=== PATIENT | female | born 1975 | race Caucasian/White ===

== ENCOUNTER 2016-12-01 03:48 | Inpatient (IN) ==
[2016-12-01 04:30] LABS: BE -2.2 mmoll (-3.0-3.0); BLOOD TYPE ARTERIAL; DRAW SITE R BRACHIAL; O2(CT) 11.9 mL/dL (15.0-23.0); PCO2(98.6) 50 mmHg (35-45); SAMPLE BLOOD; SAO2 77.1 % (95.0-100.0); THB 11.5 g/dL (11.5-17.4)
--- NOTE | 2016-12-01 04:39 | EKG Report ---
Test Performed on : 12/01/2016 03:58:16 AM Test Reason : DYSPNEA Blood Pressure : / mmHG Vent. Rate : 102 BPM Atrial Rate : 102 BPM P-R Int : 172 ms QRS Dur : 084 ms QT Int : 360 ms P-R-T Axes : 052 010 081 degrees QTc Int : 469 ms Sinus tachycardia. Low voltage QRS Septal infarct , age undetermined Abnormal ECG When compared with ECG of 11-NOV-2015 18:40, Septal infarct is now present Unconfirmed Result
[2016-12-01 04:45] LABS: BASO% 0.3 % (0.0-0.8); EOS# 0.17 X1000 (0.0-0.7); HEMOGLOBIN 11.7 g/dL (12.0-16.0); IMM GRAN# 0.13 X1000 (0.0-0.04); IMM GRAN% 0.8 % (0.0-0.5); LYMPH# 1.42 X1000 (1.2-3.4); LYMPH% 8.6 % (20.5-51.1); MANUAL DIFF NEEDED? NO; MCH 26.6 PG (27-31); MCHC 31.6 g/dL (33-37); MCV 84.1 FL (81-99); MONO# 0.76 X1000 (0.11-0.59); MONO% 4.6 % (1.7-9.3); NEUT% 84.7 % (42.2-75.2); PLT 401 X1000 (130-400)
--- NOTE | 2016-12-01 04:50 | PROVIDER DOCUMENTATION ---
HPI-Respiratory General - General Chief Complaint: Shortness of Breath Stated Complaint: SHORTNESS OF BREATH Time Seen by Provider: 12/01/16 04:04 Source: patient (Patient is a 41 year old morbidly obese white female, S/P laparscopic removal of right ovarian cyst by Dr. Bedoya at [facility] 4 days ago,H/O diabetes, who developed sudden onset of shortness of breath and substernal chest discomfort at 11pm tonight. Upon presentation, pulse ox revealed oxygen sat of 58%. Denies fever, productive cough.) Allergies/Adverse Reactions: Patient Allergies Allergy/AdvReac Type Severity Reaction Status Date / Time No Known Allergies Allergy Verified 11/11/15 18:18 Home Medications: Home Medication List Medication Instructions Recorded Confirmed Last Taken Type Amlodipine Besylate 5 mg PO HS 02/11/16 02/11/16 02/09/16 History Furosemide 40 mg PO PRN PRN 02/11/16 02/11/16 Unknown History Insulin Degludec [Tresiba 120 unit SQ DAILY 02/11/16 02/11/16 02/09/16 History Flextouch U-200] Insulin Lispro [Humalog Kwikpen 45 unit SQ TID AC 02/11/16 02/11/16 02/09/16 History U-100] Metoprolol Succinate 100 mg PO DAILY 02/11/16 02/11/16 02/09/16 History Pravastatin Sodium 80 mg PO HS 02/11/16 02/11/16 02/09/16 History Promethazine HCl 25 mg PO Q6H PRN PRN 02/11/16 02/11/16 02/09/16 History Albuterol 2.5MG/Ipratrop 0.5MG 3 ml INH RTQ4H #0 neb 02/12/16 Unknown Rx [Duoneb (A & A)] Levofloxacin [Levaquin] 750 mg PO QAM #7 tablet 02/12/16 Unknown Rx Azithromycin [Zithromax Z-Isauro] 250 mg PO DIRECTED #1 pkg 08/04/16 Unknown Rx Phenylephrine HCl/Cod/Prometh 2 tsp PO Q6H PRN PRN #120 syrup 08/04/16 Unknown Rx [Phenergan Vc-Codeine Syrup] - History of Present Illness-Resp Quality of Pain: reports: aching Review of Systems - Adult - REVIEW OF SYSTEMS - ADULT Constitutional: denies: chills, fever Eyes: denies: blurred vision Ears, Nose, Mouth & Throat: denies: throat pain Cardiovascular: reports: see HPI, chest pain Respiratory: reports: see HPI, dyspnea on exertion, shortness of breath Gastrointestinal: denies: abdominal pain, constipation, nausea, vomiting Genitourinary: denies: dysuria Musculoskeletal: reports: no symptoms reported Integumentary: denies: rash Neurological: denies: headache/migraines Psychiatric: reports: see HPI, anxiety Endocrine: reports: no symptoms reported Hematologic/Lymphatic: reports: see HPI. denies: blood clots, easy bruising, prolonged bleeding Allergic/Immunologic: reports: no symptoms reported All Other Systems: Reviewed and Negative Past History - Adult - PAST MEDICAL HISTORY-ADULT Review of Records: reports: Old Records Reviewed, Nursing Assessment Review, Medications Reviewed, Social history reviewed & non-contributory. Major Childhood Illnesses: reports: denies history Cardiovascular: reports: HTN, hyperlipidemia Gastrointestinal: reports: IBS, other (gastroparesis) Neurological: reports: other (neuropathy) Endocrine/Immune: reports: Diabetes Additional History: fibromyalgia/bilateral detached retina/legally blind - PRIOR SURGERIES/PROCEDURES Surgical/Procedure History: reports: cholecystectomy, hysterectomy, , other (bilateral eyes/left foot 2 toes amputated/gastric stimulator) - IMMUNIZATION STATUS Childhood Immunizations: See Nurse Assessment Flu Vaccine: See Nurse Assessment - FAMILY HISTORY Family History: reviewed, not pertinent Physical Exam-General - CONSTITUTIONAL General Appearance: alert, moderate distress, obese - EYES Eyes: other (clear) - HEAD, EARS, NOSE, MOUTH & THROAT HENMT: normocephalic/atraumatic, moist mucous membranes - NECK Neck: non-tender, full range of motion, supple - RESPIRATORY Respiratory: lungs clear, no respiratory distress, no accessory muscle use, decreased breath sounds - CARDIOVASCULAR Cardiovascular: tachycardia - GASTROINTESTINAL (ABDOMEN) Abdominal Exam: soft, no organomegaly, no pulsatile mass, tenderness (mild tenderness). negative: guarding, rebound - LYMPHATIC Lymphatic: no adenopathy - MUSCULOSKELETAL Back Exam: normal inspection, no CVA tenderness Extremity: non-tender. negative: deformity Peripheral Pulses: radial (R): 2+, radial (L): 2+, dorsalis-pedis (R): 2+, dorsalis-pedis (L): 2+ - SKIN Integumentary: normal color, normal turgor, warm/dry - NEUROLOGIC Neurologic: grossly normal - PSYCHIATRIC Psych/Mental Status: anxious Progress - PLAN OF CARE/RESULTS Progress/Plan/Lab Results: Vital Signs - 8 hr 12/01/16 03:53 12/01/16 05:11 Temperature 98.6 F Pulse Rate 104 H 106 H Respiratory Rate 14 21 Blood Pressure 131/112 137/97 O2 Sat by Pulse Oximetry 48 L 95 Laboratory Results - last 24 hr 12/01/16 12/01/16 12/01/16 03:50 04:11 04:11 WBC RBC Hgb Hct MCV MCH MCHC RDW Std Deviation Plt Count MPV Immature Gran % (Auto) Neut % (Auto) Lymph % (Auto) Jones % (Auto) Eos % (Auto) Baso % (Auto) Immature Gran # (Auto) Neut # (Auto) Lymph # (Auto) Jones # (Auto) Eos # (Auto) Baso # (Auto) PT INR APTT (Factor Assay) D-Dimer Specimen Type ARTERIAL Sample Site R BRACHIAL pH 7.30 L pCO2 50 H pO2 38 L* HCO3 22.7 Base Excess -2.2 Oxyhemoglobin 73.9 L* ABG O2 Sat (Calculated) 11.9 L ABG O2 Saturation 77.1 L ABG Carboxyhemoglobin 3.20 H ABG Methemoglobin 1.0 Jeffrey Test NO A-a O2 Difference 256.0 Total Hemoglobin 11.5 Lactate 1.40 Blood Gas Modality VENTIMASK FiO2 % 50.0 Inspiratory BiPAP Expiratory BiPAP Sodium 136 Potassium 5.0 Chloride 99 Carbon Dioxide 23 L Anion Gap 15 BUN 38 H Creatinine 1.5 H Estimated GFR/1.73 m2 39 BUN/Creatinine Ratio 25 Glucose 292 H Calculated Osmolality 292 Calcium 8.3 L Magnesium 2.4 Total Bilirubin 0.40 AST 158 H ALT 224 H Alkaline Phosphatase 265 H Creatine Kinase 449 H Creatine Kinase Index 0.9 CK-MB (CK-2) 4.05 Troponin T 0.017 Lxg-Q-Vbbqjpoajkh Pept Total Protein 6.9 Albumin 3.5 Globulin 3.0 Albumin/Globulin Ratio 1.0 12/01/16 12/01/16 12/01/16 04:11 04:11 04:11 WBC 16.44 H RBC 4.40 Hgb 11.7 L Hct 37.0 MCV 84.1 MCH 26.6 L MCHC 31.6 L RDW Std Deviation 14.9 H Plt Count 401 H MPV 10.0 Immature Gran % (Auto) 0.8 H Neut % (Auto) 84.7 H Lymph % (Auto) 8.6 L Jones % (Auto) 4.6 Eos % (Auto) 1.0 Baso % (Auto) 0.3 Immature Gran # (Auto) 0.13 H Neut # (Auto) 13.91 H Lymph # (Auto) 1.42 Jones # (Auto) 0.76 H Eos # (Auto) 0.17 Baso # (Auto) 0.05 PT 13.1 INR 0.96 APTT (Factor Assay) 27.1 D-Dimer 1.56 H Specimen Type Sample Site pH pCO2 pO2 HCO3 Base Excess Oxyhemoglobin ABG O2 Sat (Calculated) ABG O2 Saturation ABG Carboxyhemoglobin ABG Methemoglobin Jeffrey Test A-a O2 Difference Total Hemoglobin Lactate Blood Gas Modality FiO2 % Inspiratory BiPAP Expiratory BiPAP Sodium Potassium Chloride Carbon Dioxide Anion Gap BUN Creatinine Estimated GFR/1.73 m2 BUN/Creatinine Ratio Glucose Calculated Osmolality Calcium Magnesium Total Bilirubin AST ALT Alkaline Phosphatase Creatine Kinase Creatine Kinase Index CK-MB (CK-2) Troponin T Rch-D-Ltekknqmjhs Pept 4651 H Total Protein Albumin Globulin Albumin/Globulin Ratio 12/01/16 04:45 WBC RBC Hgb Hct MCV MCH MCHC RDW Std Deviation Plt Count MPV Immature Gran % (Auto) Neut % (Auto) Lymph % (Auto) Jones % (Auto) Eos % (Auto) Baso % (Auto) Immature Gran # (Auto) Neut # (Auto) Lymph # (Auto) Jones # (Auto) Eos # (Auto) Baso # (Auto) PT INR APTT (Factor Assay) D-Dimer Specimen Type ARTERIAL Sample Site R BRACHIAL pH 7.34 L pCO2 47 H pO2 109 H HCO3 24.4 Base Excess -0.7 Oxyhemoglobin 95.9 ABG O2 Sat (Calculated) 15.7 ABG O2 Saturation 99.6 ABG Carboxyhemoglobin 2.50 ABG Methemoglobin 1.2 Jeffrey Test NO A-a O2 Difference 545.0 Total Hemoglobin 11.5 Lactate 0.90 Blood Gas Modality BI PAP FiO2 % 100.0 Inspiratory BiPAP 16.0 Expiratory BiPAP 6.0 Sodium Potassium Chloride Carbon Dioxide Anion Gap BUN Creatinine Estimated GFR/1.73 m2 BUN/Creatinine Ratio Glucose Calculated Osmolality Calcium Magnesium Total Bilirubin AST ALT Alkaline Phosphatase Creatine Kinase Creatine Kinase Index CK-MB (CK-2) Troponin T Mir-T-Uimgpopldvt Pept Total Protein Albumin Globulin Albumin/Globulin Ratio Orders Category Date Time Status Cardiac Monitoring DIRECTED Care 12/01/16 04:05 Active Fingerstick Blood Sugar [FSBS/Accucheck Result] NOW Care 12/01/16 04:04 Active Oxygen Therapy- ED Nursing DIRECTED Care 12/01/16 04:05 Active Saline Loc NOW Care 12/01/16 04:05 Active CHEST-1 VIEW [RAD] Stat Exams 12/01/16 04:24 Taken CTA [ANGIOGRAM/PULMONARY ARTERIES] [CT] Stat Exams 12/01/16 05:32 Ordered ABG [RESP] Routine Lab 12/01/16 03:50 Completed ABG [RESP] Routine Lab 12/01/16 04:45 Completed CBC WITH ELECTRONIC DIFF [HEME] Stat Lab 12/01/16 04:11 Completed CK PROFILE [SP CHEM] Stat Lab 12/01/16 04:11 Completed COMPREHENSIVE METABOLIC PANEL [CHEM] Stat Lab 12/01/16 04:11 Com[address] D-DIMER PL [COAG] Stat Lab 12/01/16 04:11 Completed MAGNESIUM [CHEM] Stat Lab 12/01/16 04:11 Completed PRO B-NATRIURETIC PEPTIDE Stat Lab 12/01/16 04:11 Com[address]IME WITH INR PL [COAG] Stat Lab 12/01/16 04:[address] [COAG] Stat Lab 12/01/16 04:11 Completed TROPONIN T Stat Lab 12/01/16 04:[address] W/POSS RFLX CULT [URINALYSIS] Stat Lab 12/01/16 05:40 Uncollected Enoxaparin [Lovenox] Med 12/01/16 05:16 Discontinued 100 mg .ROUTE .STK-MED ONE Enoxaparin [Lovenox] Med 12/01/16 05:10 Discontinued 120 mg SUBQ NOW ONE Enoxaparin [Lovenox] Med 12/01/16 05:16 Discontinued 30 mg .ROUTE .STK-MED ONE Enoxaparin [Lovenox] Med 12/01/16 05:18 Discontinued 60 mg .ROUTE .STK-MED ONE Lorazepam [Ativan] Med 12/01/16 05:32 Discontinued 1 mg IV NOW ONE Lorazepam [Ativan] Med 12/01/16 05:33 Discontinued 2 mg .ROUTE .STK-MED ONE BIPAP Stat Oth 12/01/16 04:14 Active EKG [EKG] Stat Ther 12/01/16 03:55 Draft Result Diagrams: 12/01/16 04:11 12/01/16 04:11 - XRAY 1 XRAY Study: Chest Impression: Need Further Study (appears clear, decreased excursion) - CHANGE OF SHIFT REPORT (ED Provider) Report Given and Care Transferred to:: Dr. Wilson Items Pending: CT/MRI Results Departure - Departure Date of Disposition Decision: 12/01/16 Time of Disposition Decision: 06:00 DIAGNOSIS: Hypoxemia, Elevated d-dimer Disposition: STILL A PATIENT 30 Certified Medical Emergency: Emergent Condition: Stable Referrals and Follow-Ups: None,PCP [Primary Care Provider] - - Critical Care Note This patient required my direct & personal management of CC.: Yes
[2016-12-01 04:51] LABS: ALBUMIN 3.5 g/dL (3.5-5.0); CALCIUM 8.3 mg/dL (8.8-10.2); INR 0.96 (0.86-1.15); MAGNESIUM 2.4 mg/dL (1.5-2.7); PROTIME 13.1 Seconds (12.1-15.5); TOTAL BILIRUBIN 0.4 mg/dL (0.20-1.00); TOTAL PROTEIN 6.9 g/dL (6.3-8.3)
[2016-12-01 04:52] LABS: PTT PL 27.1 Seconds (22.6-43.9)
[2016-12-01] MEDS ORDERED: LOVENOX SUBQ ONE (05:10)
[2016-12-01 05:12] LABS: PO2(98.6) 38 mmHg (60-100)
[2016-12-01 05:13] LABS: ALLEN TEST NO; MODALITY VENTIMASK
[2016-12-01 05:15] LABS: CK INDEX 0.9 (0.0-2.5); CK-MB 4.05 ng/mL (0.0-5.0)
[2016-12-01] MEDS ORDERED: LOVENOX ONE ×3 (05:16→05:18)
[2016-12-01 05:17] LABS: BE -0.7 mmoll (-3.0-3.0); BLOOD TYPE ARTERIAL; DRAW SITE R BRACHIAL; METHB 1.2 % (0.0-1.5); O2(CT) 15.7 mL/dL (15.0-23.0); PCO2(98.6) 47 mmHg (35-45); PO2(98.6) 109 mmHg (60-100); SAMPLE BLOOD; SAO2 99.6 % (95.0-100.0); THB 11.5 g/dL (11.5-17.4); pH(98.6) 7.34 (7.35-7.45)
[2016-12-01 05:18] LABS: MODALITY BI PAP
[2016-12-01 05:19] LABS: ALLEN TEST NO
[2016-12-01] MEDS ORDERED: ATIVAN IV ONE (05:32)
[2016-12-01] MEDS ORDERED: ATIVAN ONE (05:33)
--- NOTE | 2016-12-01 06:11 | Diag Imaging Result Doc PS360 ---
EXAM: CHEST-1 VIEW HISTORY: sob TECHNIQUE: Portable semierect COMPARISON: 08/04/2016 FINDINGS: Poor inspiratory effort. Heart is not enlarged. No pleural effusions identified. No consolidation. Mild increased interstitial markings. IMPRESSION: Mild pulmonary edema. Follow-up PA and lateral recommended.. Electronically signed by Nicola Colbert 12/01/2016 6:08 AM
[2016-12-01 07:15] LABS: BILIRUBIN URINE NEGATIVE (NEGATIVE); BLOOD URINE NEGATIVE (NEGATIVE); CLARITY CLEAR (CLEAR); COLOR YELLOW; GLUCOSE URINE NEGATIVE (NEGATIVE); LEUKOCYTES URINE TRACE (NEGATIVE); NITRITE URINE NEGATIVE (NEGATIVE); PROTEIN URINE 1+(30 mg/dL) mg/dL (NEGATIVE); SP GRAVITY URINE 1.015; UROBILINOGEN URINE NORMAL
[2016-12-01 07:30] LABS: URINE CULTURE PL NEEDED? YES; URINE EPITHELIAL CELLS <10 /HPF (<10); URINE RBC <10 /HPF (<10); URINE SOURCE CATH; URINE WBC <10 /HPF (<10)
--- NOTE | 2016-12-01 08:19 | Diag Imaging Result Doc PS360 ---
EXAM: ANGIOGRAM/PULMONARY ARTERIES HISTORY: postop hypoxemia,elevated d-dimer TECHNIQUE: CT angiogram of the pulmonary arteries with IV contrast and 3-D reconstructions as per standard protocol. COMPARISON: None. FINDINGS: Preliminary interpretation was given by the on-call radiologist. Images are limited by large body habitus. There is adequate visualization of the proximal pulmonary arterial branches. No intraluminal filling defects are appreciated suggest acute pulmonary embolism. There is no evidence for aortic aneurysm or dissection. No pericardial effusion is identified. There is a 17 x 12 mm prevascular lymph node. There are fairly extensive bilateral groundglass infiltrates and denser bibasilar consolidation. No pleural effusions. No pneumothorax. The bony structures are intact. Images of the upper abdomen reveal a metallic device right anterior abdominal wall. There are cholecystectomy clips. There is subcutaneous gas and edema left anterolateral abdomen likely related to prior surgery. Correlate clinically. IMPRESSION: 1.Fairly extensive pulmonary edema of uncertain etiology. 2.No evidence for acute pulmonary embolism. 3.Subcutaneous gas left anterolateral abdominal wall. Suspect postsurgical change. Correlate clinically. Electronically signed by Clary Hdz 12/01/2016 8:17 AM
[2016-12-01] MEDS ORDERED: NS 1,000 ML IV ONE (09:29)
[2016-12-01] MEDS ORDERED: LASIX IV ONE (10:21)
[2016-12-01] MEDS ORDERED: ZOFRAN IV PRN (10:32)
[2016-12-01] MEDS ORDERED: DUONEB (A & A) INH PRN (10:37)
[2016-12-01] MEDS: DUONEB (A & A) INH SCH ×4 (10:46→22:45)
[2016-12-01] MEDS: HUMALOG DOSE (PARKWAY) SUBQ SCH ×3 (11:25→20:55)
--- NOTE | 2016-12-01 12:32 | Extremity Venous Study ---
EXAM: Venous U/S Bilateral Legs HISTORY: elevated ddimer TECHNIQUE: Barnett scale, color Doppler, and duplex evaluation was performed. COMPARISON: None. FINDINGS: The deep veins of the bilateral lower extremities demonstrate appropriate compressibility and augmentation. No intraluminal thrombus is visualized. There is no evidence for DVT. The superficial veins appear patent. IMPRESSION: No evidence for deep venous thrombosis bilateral lower extremities. Electronically signed by Clary Hdz 12/01/2016 12:30 PM
[2016-12-01] MEDS ORDERED: VANCOMYCIN IV PER PHARMACY MISC SCH (14:00)
[2016-12-01] MEDS ORDERED: VANCOMYCIN 2,500 MG in NS 500 ML IV ONE (15:00)
[2016-12-01] MEDS: ZOSYN 3.375 GM/NS 3.375 GM/50 ML IVPB IV SCH ×2 (15:09→20:40)
--- NOTE | 2016-12-01 17:56 | HISTORY AND PHYSICAL ---
CHIEF COMPLAINT: Respiratory distress. HISTORY OF PRESENT ILLNESS: This is a 41-year-old obese female who presented to the emergency room via private car complaining of shortness of breath. On arrival, according to the ER record the patient had cyanotic finger nail beds and she was ashen. She had an oxygen saturation of 48% on room air with respirations at 12-14. At the time of my interview the patient is on BiPAP and unable to answer questions so history is taken from the chart and the . The states that the patient had surgery Sunday having a cyst removed from her ovary. It was done robotically. He states she went home that night. She 0was given looks like Percocet 7.5 mg. He said that she took 2 scheduled every 4-6 hours the 1st 24 hours and then 2 as needed. We are unsure of the amount that she took. He stated that she has had no complaints until today she told him that she was having shortness of breath and that she needed to come to the emergency room. The stated that he was going to go to [facility] were her physicians are but he felt she was too sick so he stopped at [facility]. As stated before on arrival she did have cyanotic nail beds. She was breathing 10-12 times a minute. She was found to have an elevated D-dimer with a CTA pulmonary negative for PE and bilateral lower extremity Doppler negative for DVT. Chest x-ray reveals mild pulmonary edema. She was noted to have lower extremity edema which the states is new since surgery. She was given 120 mg of Lovenox with Lasix IV and Ativan IV and admitted for further evaluation and treatment. 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 PAST SURGICAL HISTORY: Gastric pacemaker placement, cholecystectomy, , hysterectomy, amputation of 2 toes on the left foot. SOCIAL HISTORY: She denies alcohol, tobacco, or illicit drug use. She is . She lives with her and child. ALLERGIES: Tylenol which makes her heart race. HOME MEDICATIONS: A list will be obtained by the nursing staff. REVIEW OF SYSTEMS: Unable to obtain from the patient at present. PHYSICAL EXAMINATION: GENERAL: This is a morbidly obese 41-year-old female who is sitting in the bed in some distress with BiPAP in use. VITAL SIGNS: Blood pressure 161/98 with a heart rate of 102, respirations are 18, temperature is 98.7 degrees with oxygen saturations of 98-100 on BiPAP. NECK: Supple. Trachea midline. CARDIOVASCULAR: Regular rate and rhythm. S1 and S2 are appreciated. PULMONARY: Breath sounds are diminished throughout with some crackles noted bilateral. She does have some scattered wheezing. Chest rises and falls symmetrically with respiration. GASTROINTESTINAL: Abdomen is large, soft, nontender, nondistended with bowel sounds in all 4 quadrants. : Kramer is patent with perlita urine draining. EXTREMITIES: No clubbing or cyanosis. She does have lower extremity edema from just above the knees down, this is pitting. Pulses are palpable x4. SKIN: Warm and dry with no rashes or lesions noted. DIAGNOSTICS: WBC is 16.4 with a hemoglobin of 11.7, hematocrit 37 and platelets of 401,000. D- dimer is 1.56. Sodium is 136, potassium 5, BUN 38, creatinine 1.5 with glucose of ranging from the 180 to 290s. AST is 158, ALT 224, alkaline phosphatase 265 and CK 449, troponin is negative. Urinalysis essentially negative and Tylenol level is less than 1.2. Chest x-ray revealed mild pulmonary edema. Pulmonary arteriogram reveals no PE. Bilateral lower extremity Doppler no DVT. ASSESSMENT AND PLAN: 1. Acute hypoxic respiratory failure. Causes could be multifactorial. She did have recent surgery, we are unsure of how much fluid she received, the states that she has done very little since she came home from the hospital Sunday, infection could be another component as she does have a white count of 16. She did have recent surgery, although the chest x-ray is clear there is a chance there could be pneumonia, also overmedication could be a component as she was prescribed 15 mg of Percocet at a time per the 's statement with this being taken every 4-6 hours scheduled at 1st then p.r.n., once she was ventilated her PO2 did rise from 38-109 with saturations going from 48-95%. We will continue to follow, give supplemental oxygen, give BiPAP, will give no sedating medications. 2. Questionable sepsis. As stated above she has had recent surgery. Will obtain blood cultures. Urine culture is pending. She will be started on Zosyn and vancomycin dosed per pharmacy. 3. Pulmonary edema secondary to #1. Will continue with IV Lasix and diurese. 4. Chronic kidney disease. In looking back at her records it looks like since 2013 her creatinine has been 1-1.3. Will trend her labs. Renal dose any medications. 5. Diabetes mellitus. We will hold her home medications. She will be placed on pattern blood glucose with sliding scale insulin once she is eating then we can add her long-acting insulin. 6. Hypertension. We can identify her medications and continue when appropriate, while she is needing BiPAP continuously we going give hydralazine p.r.n. 7. Transaminitis. In review back her records she has been hospitalized with transaminitis in the past. It looks like she has had it over the last year and in February 2016 she was being monitored by her primary care physician on an outpatient basis. We will trend labs. 8. Gastroparesis with gastric pacemaker. We will assure the patient has no MRI. 9. Deep vein thrombosis prophylaxis. Will use Lovenox and GI prophylaxis Prilosec. Further treatments pending hospital course. Dictated by BRENDAN Beaver for Vince Oleary MD cc: BRENDAN Beaver MD
[2016-12-01] MEDS ORDERED: RELISTOR SUBQ ONE (18:59)
[2016-12-01] MEDS: APRESOLINE IV PRN (20:40)
[2016-12-01] MEDS: PRILOSEC PO SCH (20:40)
[2016-12-01] MEDS: LASIX IV SCH (20:41)
[2016-12-02] MEDS: ZOSYN 3.375 GM/NS 3.375 GM/50 ML IVPB IV SCH ×4 (02:14→20:34)
[2016-12-02] MEDS: APRESOLINE IV PRN ×2 (02:14→11:12)
[2016-12-02] MEDS: DUONEB (A & A) INH SCH ×6 (03:05→22:52)
[2016-12-02 06:03] LABS: HEMATOCRIT 34.8 % (37.0-47.0); HEMOGLOBIN 10.9 g/dL (12.0-16.0); MCH 26.6 PG (27-31); MCHC 31.3 g/dL (33-37); MCV 84.9 FL (81-99); RBC 4.1 XMIL (4.2-5.4)
[2016-12-02 06:34] LABS: ALBUMIN 2.9 g/dL (3.5-5.0); CALCIUM 8.4 mg/dL (8.8-10.2); MAGNESIUM 2.1 mg/dL (1.5-2.7); POTASSIUM 3.5 mmol/L (3.5-5.1); TOTAL BILIRUBIN 0.4 mg/dL (0.20-1.00); TOTAL PROTEIN 6.8 g/dL (6.3-8.3)
[2016-12-02] MEDS: HUMALOG DOSE (PARKWAY) SUBQ SCH ×4 (06:41→20:34)
[2016-12-02] MEDS: LASIX IV SCH ×2 (08:24→20:54)
[2016-12-02] MEDS: PRILOSEC PO SCH ×2 (08:24→20:34)
[2016-12-02] MEDS: LOVENOX SUBQ SCH (08:24)
[2016-12-02] MEDS ORDERED: LOVENOX SUBQ SCH (09:00)
[2016-12-02] MEDS ORDERED: PNEUMOVAX 23 IM ONE (10:30)
[2016-12-02] MEDS ORDERED: VANCOMYCIN 2,200 MG in NS 500 ML IV SCH (15:00)
--- NOTE | 2016-12-02 15:21 | PROGRESS NOTE ---
DATE: 12/02/2016 SUBJECTIVE: The patient states she feels much better today. She is on 2 L of nasal cannula. She is able to lie flat. She denies any shortness of breath, dyspnea, or cough. OBJECTIVE: Vital Signs: Blood pressure is 150/79 with a heart rate of 100, respirations are 22. Temperature is 97.2 degrees with O2 saturations of 96-99 on 4 L nasal cannula. Cardiovascular: Regular rate and rhythm. S1 and S2 appreciated. Pulmonary: She is diminished with equal expansion on inspiration. No increased work of breathing noted. Gastrointestinal: Abdomen is soft, nontender, nondistended with bowel sounds in all 4 quadrants. Extremities: No clubbing, cyanosis, or edema. Pulses are palpable x4. Calves are nontender. DIAGNOSTICS: WBC is 12.6 with a hemoglobin of 10.9, hematocrit 34.8, platelets of 364,000. Sodium is 144, potassium 3.5. BUN 29, creatinine 1.3 with a glucose of 111. Alkaline phosphatase is 53. ALT 126 and alkaline phosphatase 194. Urine culture revealed no growth. Blood cultures are pending. ASSESSMENT AND PLAN: 1. Acute hypoxic respiratory failure. This is resolved. 2. Questionable sepsis. We will continue with antibiotics. Urine culture is negative. Blood cultures are pending. 3. Pulmonary edema secondary to #1. The patient diuresed a total of 7800 mL, and she is -6,490 since admission. We will continue to monitor I and O. 4. Chronic kidney disease. Creatinine is 1.3. She is at her baseline. 5. Diabetes mellitus. Blood sugars are ranging in the 50-111 range. We will continue to hold her home medications, and she will just stay on pattern blood glucose with sliding scale. 6. Hypertension. We will continue with her current regimen. 7. Transaminitis. This is improving. 8. Gastroparesis with gastric pacemaker, aware. 9. Deep venous thrombosis prophylaxis. We will continue with Lovenox and gastrointestinal prophylaxis with Prilosec. Dictated by BRENDAN Beaver for Vince Oleary MD cc: BRENDAN Beaver MD
[2016-12-02] MEDS ORDERED: PERCOCET-5 PO PRN (15:55)
[2016-12-02] MEDS ORDERED: PHENERGAN PO PRN (15:55)
[2016-12-02] MEDS: TOPROL XL PO SCH (17:25)
[2016-12-02] MEDS: CYMBALTA PO SCH (17:26)
[2016-12-02] MEDS ORDERED: LASIX PO SCH (21:00)
[2016-12-02] MEDS ORDERED: NORVASC PO SCH (21:00)
[2016-12-03] MEDS: ZOSYN 3.375 GM/NS 3.375 GM/50 ML IVPB IV SCH ×2 (02:26→08:51)
[2016-12-03] MEDS: DUONEB (A & A) INH SCH ×3 (03:59→11:16)
[2016-12-03] MEDS: HUMALOG DOSE (PARKWAY) SUBQ SCH ×2 (06:41→12:19)
[2016-12-03 06:46] LABS: HEMATOCRIT 34.1 % (37.0-47.0); HEMOGLOBIN 10.6 g/dL (12.0-16.0); MCH 25.9 PG (27-31); MCHC 31.1 g/dL (33-37); MCV 83.4 FL (81-99); MPV 9.8 FL (7.4-10.4); RBC 4.09 XMIL (4.2-5.4)
[2016-12-03 07:20] LABS: ALBUMIN 2.9 g/dL (3.5-5.0); CALCIUM 8.1 mg/dL (8.8-10.2); POTASSIUM 3.5 mmol/L (3.5-5.1); TOTAL BILIRUBIN 0.4 mg/dL (0.20-1.00); TOTAL PROTEIN 6.6 g/dL (6.3-8.3)
[2016-12-03] MEDS: CYMBALTA PO SCH (10:11)
[2016-12-03] MEDS: TOPROL XL PO SCH (10:11)
[2016-12-03] MEDS: LASIX IV SCH (10:11)
[2016-12-03] MEDS: LOVENOX SUBQ SCH (10:11)
[2016-12-03] MEDS: PRILOSEC PO SCH (10:11)
[2016-12-03 11:57] VITALS: BP 140/85
--- NOTE | 2016-12-03 13:50 | ECHO REPORT ---
ORDER DATE: 12/01/2016 MEASUREMENTS: 1. Interventricular septum 1.0, left ventricular posterior wall 1.0, diastolic diameter 4.8, left atrium 3.8, aorta 2.8. 2. Aortic valve leaflets are trileaflet. Pulmonic valve was normal. Tricuspid valve was normal. Normal left ventricular cavity size. Estimated ejection fraction of 50-55%. Endocardium not well visualized in all views. Technically suboptimal study. Poor acoustic window. 3. Dopplers could not be obtained. Cannot comment on the regurgitation however there is no aortic stenosis. Mitral valve leaflets are normal. There is anterior echo-free space suggestive of pericardial fat pad. 4. There is no obvious intracardiac mass or thrombus seen. 5. There is mild mitral regurgitation. 6. There is no aortic stenosis or regurgitation. cc: MD Nathalie An CRNP
--- NOTE | 2016-12-03 18:26 | DISCHARGE SUMMARY ---
ADMISSION DATE: 12/01/2016 DISCHARGE DATE: 12/03/2016 DIAGNOSES: 1. Acute hypoxic respiratory failure, resolved. 2. Questionable sepsis. Blood cultures revealed no growth after 48 hours. Urine culture revealed no growth after 48 hours. 3. Pulmonary edema secondary to #1. The patient has diuresed 8 L since admission. This has resolved. 4. Chronic kidney disease. Creatinine is 1.3 at her baseline. 5. Diabetes mellitus. 6. Hypertension. 7. Transaminitis, resolved. 8. Gastroparesis with gastric pacemaker. Aware. DIAGNOSTICS: 1. 12/01/2016, chest x-ray revealed mild pulmonary edema. 2. 12/01/2016, pulmonary arteriogram revealed fairly extensive pulmonary edema. No evidence for acute pulmonary embolism. 3. Bilateral lower extremity Doppler revealed no evidence for DVT. HOSPITAL COURSE: Ms. Cisneros presented to the emergency room after having some shortness of breath. She was found to have O2 saturation of 48% with respirations 12-14. She was placed on BiPAP. Monitor in ICU. Thankfully, she did improve, has been transitioned down to nasal cannula. Now she has been on room air maintaining saturations of 96-98%. Thankfully, she is back to her normal. She has remained afebrile. We did trend blood sugars. They ranged from 106 to 250. She did have an episode of hypoglycemia at 51. She was covered with fingerstick blood sugars and pattern blood glucose. PHYSICAL EXAMINATION: Cardiovascular: Regular rate and rhythm. S1 and S2 appreciated. Pulmonary: Breath sounds are clear with no increased work of breathing noted. Gastrointestinal: Abdomen is large, soft, nondistended, nontender with bowel sounds in all 4 quadrants. Extremities: No clubbing, cyanosis, or edema. Neurologic: She is alert and oriented x3. Cranial nerves 2-12 grossly intact. DISCHARGE MEDICATIONS: 1. Metoprolol succinate 100 mg daily. 2. Duloxetine/hydrochloride 1 capsule daily. 3. Humalog insulin 50 units subcutaneous t.i.d. a.c. 4. Tarceva U200, 150 units daily. 5. Amlodipine 5 mg at bedtime. 6. Promethazine 25 mg q.6 hours p.r.n. 7. Furosemide 40 mg b.i.d. 8. Oxycodone 7.5/325 q.6 hours p.r.n. DISCHARGE VITAL SIGNS: Blood pressure is 140/80 with a heart rate of 100, respirations are 20, temperature is 97.7 degrees oral with room air saturations of 97%. FOLLOW-UP: 1. She is to follow up with her primary care physician this week. 2. Her atm technician at [facility] who performed her surgery on Sunday as directed. DISPOSITION: She is being discharged home in stable condition with family members. TIME SPENT: This is a greater than 30 minute discharge. Dictated by BRENDAN Beaver for Vince Oleary MD cc: BRENDAN Beaver MD
== END 2016-12-03 14:00 | disposition home or self-care (01) ==
LOC: P.ED 03:48 → P.ICU 09:49 → P.MEDSURG 12-02 15:44
PROVIDERS: ATTEND Family Medicine